=== PATIENT | female | born 1945 | race Caucasian/White ===

== ENCOUNTER 2017-09-12 09:35 | Emergency (ER) | payer MEDICARE ==
[2017-09-12] MEDS ORDERED: Ketorolac Tromethamine 30 MG/ML VIAL ONE (10:41)
[2017-09-12] MEDS ORDERED: Ondansetron ODT 4 MG TAB ONE (10:41)
--- NOTE | 2017-09-12 11:23 | CT ---
CT BRAIN WITHOUT CONTRAST: HISTORY: Headache. FINDINGS: No evidence of infarct, hemorrhage, midline shift, or abnormal extraaxial fluid collections is seen. The ventricular size is normal and the basilar cisterns are patent. The bony calvarium is intact. The visualized paranasal sinuses and mastoid air cells are well aerated. IMPRESSION: No CT evidence of acute intracranial process. POS: [facility]
== END 2017-09-12 11:33 | disposition home or self-care (01) ==
LOC: SCSER 09:35
DX: G43.909 Migraine, unspecified, not intractable, without status migrainosus (principal); M26.609 Unspecified temporomandibular joint disorder, unspecified side; I10 Essential (primary) hypertension; F41.9 Anxiety disorder, unspecified; Z79.899 Other long term (current) drug therapy
CPT/HCPCS: 70450; 96372; J1885; Q0162

== ENCOUNTER 2017-10-29 18:36 | Emergency (ER) | payer MEDICARE ==
[~2017-10-29 18:36] MED LIST: ISOVUE-370 76%-LOCM 1 ML ONE
[2017-10-29 19:44] LABS: Bilirubin Negative (Negative); Blood, Urine Negative (Negative); Clarity CLEAR (Clear); Glucose, Urine (Dipstick) Negative (Negative); Leukocyte Negative (Negative); Nitrite Negative (Negative); Protein, Urine (Dipstick) Negative (Neg-Trace); Specific Gravity, Urine 1.004 (1.002-1.036); Urobilinogen 0.2 mg/dL (0.2-1.0); pH, Urine 6.5 (5.0-9.0)
[2017-10-29 20:06] LABS: #Basophils 0.1 thou/uL (0.0-0.2); #Eosinphils 0.1 thou/uL (0.0-0.7); #Lymphocytes 1.8 thou/uL (1.20-3.40); #Monocytes 0.4 thou/uL (0.11-0.59); #Neutrophils 3.8 thou/uL (1.40-6.50); %Basophils 1.1 % (0.0-1.0); %Eosinophils 1.5 % (0.0-10.0); %Lymphocytes 29.7 % (21.0-51.0); %Monocytes 5.8 % (0.0-10.0); %Neutrophils 61.8 % (42.0-75.0); Hemoglobin 12.7 g/dL (12.0-16.0); Mean Corpuscular HGB CONC 33.2 g/dL (32.0-36.0); Mean Corpuscular Volume 87.2 fL (78.0-98.0); Mean Platelet Volume 8.5 fL (7.4-10.4); Platelet Count 182 thou/uL (130-400); RBC Distribution Width 12.2 % (11.5-14.5); Red Blood Cell (RBC) Count 4.39 mill/uL (4.20-5.40); White Blood Cell (WBC) Count 6.2 thou/uL (4.8-10.8)
[2017-10-29 20:29] LABS: ALT (SGPT) Less than 7 U/L (8-55); AST (SGOT) 18 U/L (5-34); Albumin 4.3 g/dL (3.4-4.8); Alkaline Phosphatase 106 U/L (40-150); Anion Gap 12 mmol/L (10-20); BUN (Urea Nitrogen) 7 mg/dL (9.8-20.1); Bilirubin, Total 0.5 mg/dL (0.2-1.2); Calc. Creatinine Clearance 0 mL/min (70-130); Calcium 9.7 mg/dL (7.8-10.44); Carbon Dioxide 26 mmol/L (23-31); Chloride 106 mmol/L (98-107); Estimated GFR-MDRD 79; Globulin 3.1 g/dL (2.4-3.5); Glucose 99 mg/dL (80-115); Lipase 26 U/L (8-78); Potassium 3.9 mmol/L (3.5-5.1); Protein, Total 7.4 g/dL (6.0-8.3); Sodium 140 mmol/L (136-145)
--- NOTE | 2017-10-29 21:39 | CT ---
CT ABDOMEN WITH CONTRAST CT PELVIS WITH CONTRAST 10/29/17 COMPARISON: 12/13/16. HISTORY: Lower abdominal pain, starting today. Bloating. Patient has irritable bowel syndrome. TECHNIQUE: Abdomen and pelvic CT are performed with IV contrast. Enteric contrast is not administered. Coronal r eformatted images are submitted for interpretation. FINDINGS: ABDOMEN CT: Normal cardiac silhouette. Lung bases are clear. the visualized aorta has a normal caliber. No periao rtic fat stranding. Symmetric attenuation of the psoas muscles. Gallbladder is surgically absent. Portal vein is patent. The liver, spleen, pancreas and adrenal glands have appropriate enhancement. No gastrohepatic, retrocrural or periportal lymphadenopathy. No mesenteric mass, lymphadenopathy, peri e air or free fluid. Limited evaluation of the alimentary canal due to lack of oral contrast. No evidence of bowel obstruc tion. Ileocecal junction is normal. Cecal apex is slightly atypical in location as noted in the upper aspect of the pelvis. Normal caliber appendix is identified. Scattered fecal material in a nondisten ded, nondilated colon. Minimal diverticulosis. No evidence of diverticulitis. Mucosal prominence of t he sigmoid colon is felt to be due to inadequate distention. Symmetric enhancement of the kidneys. Bilateral renal pelvic cysts are again noted. No evidence of ob structive uropathy. PELVIC CT: No mass, lymphadenopathy, free air or free fluid. The uterus is surgically absent. Bladder is unremar kable. No lytic or blastic lesions in the osseous structures. Stable hypodensity in the left labia majora. IMPRESSION: 1. No acute abnormality in the abdomen or pelvis. 2. Bilateral peripelvic cyst. 3. Normal caliber appendix. 4. Mucosal thickening of the sigmoid colon likely due to inadequate distention. POS: [facility]
== END 2017-10-29 20:00 | disposition home or self-care (01) ==
LOC: ERS 18:36
DX: L03.311 Cellulitis of abdominal wall (principal); K58.9 Irritable bowel syndrome, unspecified; F41.9 Anxiety disorder, unspecified; Z79.899 Other long term (current) drug therapy
CPT/HCPCS: 74177; 80053; 81003; 83605; 83690; 85025; 87070; 87086; 87205; 96360

== ENCOUNTER 2018-03-26 10:09 | Emergency (ER) | payer MEDICARE ==
[2018-03-26 10:43] LABS: #Basophils 0.1 thou/uL (0.0-0.2); #Eosinphils 0.1 thou/uL (0.0-0.7); #Monocytes 0.4 thou/uL (0.11-0.59); #Neutrophils 6.4 thou/uL (1.40-6.50); %Basophils 0.8 % (0.0-1.0); %Eosinophils 1.1 % (0.0-10.0); %Lymphocytes 12.6 % (21.0-51.0); %Monocytes 5.1 % (0.0-10.0); %Neutrophils 80.4 % (42.0-75.0); Hemoglobin 12.2 g/dL (12.0-16.0); Mean Corpuscular HGB CONC 33.3 g/dL (32.0-36.0); Mean Platelet Volume 8.3 fL (7.4-10.4); Platelet Count 197 thou/uL (130-400); RBC Distribution Width 12.8 % (11.5-14.5); Red Blood Cell (RBC) Count 4.23 mill/uL (4.20-5.40); White Blood Cell (WBC) Count 7.9 thou/uL (4.8-10.8)
--- NOTE | 2018-03-26 10:45 | RAD ---
CHEST 1 VIEW: HISTORY: Syncope. COMPARISON: Radiograph 09/15/2016. FINDINGS: Lungs are hyperinflated. No confluent airspace consolidation, pneumothorax, or effusion. Cardiac si lhouette and mediastinal contours within normal limits. IMPRESSION: Chronic changes. No acute intrathoracic abnormality. POS: [facility]
[2018-03-26 11:06] LABS: ALT (SGPT) Less than 7 U/L (8-55); AST (SGOT) 18 U/L (5-34); Albumin 4.2 g/dL (3.4-4.8); Alkaline Phosphatase 97 U/L (40-150); Anion Gap 12 mmol/L (10-20); BUN (Urea Nitrogen) 10 mg/dL (9.8-20.1); Bilirubin, Total 0.6 mg/dL (0.2-1.2); Calc. Creatinine Clearance 0 mL/min (70-130); Calcium 9.4 mg/dL (7.8-10.44); Carbon Dioxide 26 mmol/L (23-31); Chloride 106 mmol/L (98-107); Estimated GFR-MDRD 83; Globulin 3.4 g/dL (2.4-3.5); Glucose 91 mg/dL (80-115); Magnesium 2.2 mg/dL (1.6-2.6); Potassium 3.6 mmol/L (3.5-5.1); Protein, Total 7.6 g/dL (6.0-8.3); Sodium 140 mmol/L (136-145)
[2018-03-26 11:09] LABS: Troponin I 0.016 ng/mL (< 0.028)
== END 2018-03-26 12:57 | disposition home or self-care (01) ==
LOC: ERS 10:09
DX: R53.1 Weakness (principal); K58.9 Irritable bowel syndrome, unspecified; F41.9 Anxiety disorder, unspecified; Z79.899 Other long term (current) drug therapy
CPT/HCPCS: 36415; 71045; 80053; 83735; 83880; 84443; 84484; 85025; 93005

== ENCOUNTER 2018-04-05 08:14 | Outpatient (CLI) | payer MEDICARE ==
--- NOTE | 2018-04-05 11:31 | MRI ---
MRI CERVICAL SPINE WITHOUT CONTRAST: HISTORY: Osteoarthritis of the cervical region. Unspecified spinal osteoarthritis. Neck pain. Unstable gait x6 months. COMPARISON: 09/03/2016 FINDINGS: There is stable alignment of the cervical spine. Appropriate T1 marrow signal intensity of the cervi talisha vertebrae. Cervical spine vertebral body height is maintained. There is no fracture. No signif icant STIR hyperintensity to suggest vertebral body edema due to ligamentous injury. The visualized brain parenchyma, cervicomedullary junction, cervical cord, and upper thoracic cord mazariegos ve normal size and signal intensity. C2-C3: No significant central canal stenosis. The neural foramina are patent. C3-C4: No significant central canal stenosis. Mild bilateral foraminal narrowing due to uncovertebr al hypertrophy. C4-C5: Broad-based disk bulge with a central disk protrusion, impressing upon the ventral thecal sac . There is defacement of the ventral subarachnoid space. There is deformity of the ventral cord, wi thout T2 hyperintensity in the cord. When compared to the previous examination, the degree of disk m aterial indenting upon the cord does not appear to have significantly increased. There is mild centr al canal stenosis. The neural foramina are patent bilaterally. C5-C6: Broad-based disk bulge, which abuts the thecal sac and effaces the ventral subarachnoid space . Minimal deformity of the cervical cord. Mild central canal stenosis. The neural foramina are pat ent. C6-C7: No significant central canal stenosis or foraminal narrowing. Bilateral perineural sleeve cy sts are noted. C7-T1: No significant central canal stenosis or neural foraminal narrowing. Bilateral perineural sl eeve cysts are noted. IMPRESSION: Essentially stable degenerative changes of the cervical spine. POS: [facility]
--- NOTE | 2018-04-05 11:55 | MRI ---
MRI THORACIC SPINE NONCONTRAST: INDICATIONS: Osteoarthritis of the thoracic spine. Back pain. COMPARISON: Reference made to a 08/20/2005 exam. FINDINGS: Stable intrinsic T1 hyperintensity scattered within the thoracic spine is present, indicating intraos seous hemangiomas. The largest of these is located at the T9 vertebral body. There is no evidence o f an expansile process of the thoracic spinal cord. No intrinsic cord signal abnormality. There is no significant, extrinsic mass effect upon the thoracic spinal cord. Minimal disk bulges are seen wi th slight effacement of the ventral thecal sac. No high-grade foraminal compromise. No evidence of subluxation. Incidentally imaged upper left kidney reveals T2 hyperintensity centrally, which may re late to peripelvic cyst formation. IMPRESSION: 1. Minimal degenerative change of the thoracic spine. 2. No significant mass effect upon the thoracic spinal cord or evidence of intrinsic cord signal abn ormality. 3. 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 4. No acute compression fracture or subluxation. POS: [facility]
--- NOTE | 2018-04-05 13:01 | MRI ---
MRI LUMBAR SPINE WITHOUT CONTRAST: HISTORY: Lumbar spondylosis. Unstable gait. Low back pain. Bilateral feet numbness x6 months. COMPARISON: 08/20/2005 TECHNIQUE: An MRI of the lumbar spine is performed without intravenous Gadolinium administration. Multisequenti al, multiplanar imaging is performed. FINDINGS: Appropriate T1 marrow signal intensity of the lumbar vertebrae. Vertebral body height is maintained. There is no fracture. No significant STIR hyperintensity to suggest vertebral body edema or ligame ntous injury. Symmetric signal intensity of psoas muscles. Appropriate signal intensity of the visualized solid or shena. Bilateral parapelvic cysts are again noted. The conus medullaris terminates at the upper aspect of L1. T12-L1: Adequate disk hydration. No significant central canal stenosis or foraminal narrowing. L1-L2: Adequate disk hydration. No significant central canal stenosis. The foramina are patent. L2-L3: Adequate disk hydration. No significant central canal stenosis. The neural foramina are pat ent. L3-L4: Adequate disk hydration. No significant central canal stenosis. The neural foramina are pat ent. L4-L5: Desiccation with mild loss of disk space height. Generalized disk bulge results in mild cent ral canal stenosis. The neural foramina are patent bilaterally. L5-S1: There is desiccation without significant loss of disk space height. No significant posterior disk abnormality. There is no significant central canal stenosis. The right subarticular zone is u nremarkable. Disk material does encroach upon the left subarticular zone and abuts the traversing le ft S1 nerve root. No significant obscuration of the traversing left S1 nerve root. The neural mert carolann are patent bilaterally. IMPRESSION: Degenerative changes at L5-S1, as described above. The degree of mass effect upon the traversing lef t S1 nerve root has not progressed when compared to the previous examination. POS: [facility]
== END 2018-04-05 08:15 | disposition home or self-care (01) ==
LOC: BICMRI 08:14
PROVIDERS: ATTEND Orthopaedic Surgery
DX: M47.812 Spondylosis without myelopathy or radiculopathy, cervical region (principal); M47.814 Spondylosis without myelopathy or radiculopathy, thoracic region; M47.816 Spondylosis without myelopathy or radiculopathy, lumbar region; M47.817 Spondylosis without myelopathy or radiculopathy, lumbosacral region; D18.09 Hemangioma of other sites
CPT/HCPCS: 72141; 72146; 72148

== ENCOUNTER 2018-10-11 15:20 | Outpatient (CLI) | payer MEDICARE ==
--- NOTE | 2018-10-11 16:24 | MRI ---
MRI OF LEFT KNEE10/11/18 PROVIDED CLINICAL HISTORY: Left knee pain. FINDINGS: Comparison is made with the examination dated 09/17/2015. The anterior cruciate ligament, posterior cruciate ligament, medial collateral ligament and lateral c ollateral ligamentous complex demonstrates an intact MR appearance, as does the extensor mechanism. The medial and lateral menisci demonstrate no evidence for tear. No focal articular cartilage defect is apparent. There is articular cartilage thinning involving the central weightbearing portions of the medial femorotibial joint. There is marrow edema within the s ubchondral regions of the central weightbearing portions of the lateral femoral condyle with an assoc iated subtle area of cortical concavity and subcortical linear T1 and T2 hypointensity, compatible wi th subchondral insufficiency fracture. There is a small knee joint effusion. No additional concerning regional marrow signal abnormality is evident. Regional muscular signal appears unremarkable. IMPRESSION: Lateral femoral condyle subchondral insufficiency fracture. POS: [facility]
== END 2018-10-11 15:21 | disposition home or self-care (01) ==
LOC: BICMRI 15:20
PROVIDERS: ATTEND Orthopaedic Surgery
DX: M23.92 Unspecified internal derangement of left knee (principal); S72.421A Displaced fracture of lateral condyle of right femur, initial encounter for closed fracture

== ENCOUNTER 2018-10-24 11:10 | Outpatient (CLI) | payer MEDICARE ==
--- NOTE | 2018-10-30 18:15 | MMO ---
Bilateral MAMMO Bilat Screen DDI+ANGELIQUE. CLINICAL HISTORY: Patient is 73 years old and is seen for screening. The patient has no family history of breast cancer. The patient has no personal history of cancer. The patient has a history of right Stereotatic Biopsy - benign. VIEWS: The views performed were: bilateral craniocaudal with tomosynthesis and bilateral mediolateral oblique with tomosynthesis. FILMS COMPARED: The present examination has been compared to prior imaging studies performed at [facility] on 10/15/2016, and at [facility] on 08/02/2012, 05/16/2015 and 05/26/2016. MAMMOGRAM FINDINGS: There are scattered fibroglandular densities. Finding 1: There is a new focal asymmetry seen in the MLO view only seen in the middle central region of the left breast located 6 centimeters from the nipple. Finding 2: There is a focal asymmetry seen in the CC view only seen in the anterior inner region of the left breast located 2 centimeters from the nipple. In the right breast, there are no suspicious masses, calcifications or areas of architectural distortion. IMPRESSION: FINDING 1: NEW FOCAL ASYMMETRY IN THE MIDDLE CENTRAL REGION OF THE LEFT BREAST LOCATED 6 CENTIMETERS FROM THE NIPPLE REQUIRES ADDITIONAL EVALUATION. ADDITIONAL PROJECTIONS ARE RECOMMENDED. SPOT COMPRESSION IS RECOMMENDED. SPOT MAGNIFICATION VIEW(S) ARE RECOMMENDED. FINDING 2: FOCAL ASYMMETRY IN THE ANTERIOR INNER REGION OF THE LEFT BREAST LOCATED 2 CENTIMETERS FROM THE NIPPLE REQUIRES ADDITIONAL EVALUATION. AN ULTRASOUND EXAM IS RECOMMENDED IF NEEDED. ADDITIONAL IMAGING. THE RESULTS OF THIS EXAM WERE SENT TO THE PATIENT. ACR BI-RADS Category 0 - Incomplete: Need additional imaging evaluation. [facility] will notify the patient of the need for additional imaging services. MAMMOGRAPHY NOTE: 1. A negative mammogram report should not delay a biopsy if a dominant of clinically suspicious mass is present. 2. Approximately 10% to 15% of breast cancers are not detected by mammography. 3. Adenosis and dense breasts may obscure an underlying neoplasm.
== END 2018-10-24 11:11 | disposition home or self-care (01) ==
LOC: BICMAMMO 11:10
PROVIDERS: ATTEND Family Medicine
DX: Z12.31 Encounter for screening mammogram for malignant neoplasm of breast (principal); N64.89 Other specified disorders of breast
CPT/HCPCS: 77063; 77067

== ENCOUNTER 2018-11-01 13:03 | Outpatient (CLI) | payer MEDICARE ==
--- NOTE | 2018-11-01 13:47 | MMO ---
Left Breast MAMMO Unilat Diag DDI LT+ANGELIQUE. CLINICAL HISTORY: Patient is 73 years old and is seen for diagnostic exam. The patient has no family history of breast cancer. The patient has no personal history of cancer. The patient has a history of right Stereotatic Biopsy - benign. VIEWS: The views performed were: left craniocaudal spot compression with tomosynthesis; left mediolateral oblique spot compression with tomosynthesis; and left mediolateral with tomosynthesis. FILMS COMPARED: The present examination has been compared to prior imaging studies performed at [facility] on 10/15/2016 and 10/24/2018, and at [facility] on 05/16/2015 and 05/26/2016. MAMMOGRAM FINDINGS: There are scattered fibroglandular densities. There are several stable focal asymmetries seen in the left breast. There are no suspicious masses, suspicious calcifications, or new areas of architectural distortion. IMPRESSION: THERE IS NO MAMMOGRAPHIC EVIDENCE OF MALIGNANCY. A ROUTINE FOLLOW-UP MAMMOGRAM IN 1 YEAR IS RECOMMENDED. THE RESULTS OF THIS EXAM WERE SENT TO THE PATIENT. ACR BI-RADS Category 2 - Benign finding MAMMOGRAPHY NOTE: 1. A negative mammogram report should not delay a biopsy if a dominant of clinically suspicious mass is present. 2. Approximately 10% to 15% of breast cancers are not detected by mammography. 3. Adenosis and dense breasts may obscure an underlying neoplasm.
== END 2018-11-01 13:04 | disposition home or self-care (01) ==
LOC: BICMAMMO 13:03
PROVIDERS: ATTEND Family Medicine
DX: R92.2 Inconclusive mammogram (principal); Z91.89 Other specified personal risk factors, not elsewhere classified
CPT/HCPCS: 77065; G0279

== ENCOUNTER 2018-12-28 19:24 | Emergency (ER) | payer MEDICARE ==
--- NOTE | 2018-12-28 20:34 | RAD ---
RADIOGRAPH CHEST 2 VIEWS: DATE: 12/28/2018 HISTORY: 73-year-old female with chest pain after painful cough FINDINGS: There is no airspace density, pulmonary edema, pleural effusion, pneumothorax, or cardiomegaly. IMPRESSION: No acute cardiopulmonary findings.
[2018-12-28 21:01] LABS: #Basophils 0.1 thou/uL (0.0-0.2); #Eosinphils 0.2 thou/uL (0.0-0.7); #Lymphocytes 1.7 thou/uL (1.20-3.40); #Monocytes 0.6 thou/uL (0.11-0.59); #Neutrophils 5.2 thou/uL (1.40-6.50); %Eosinophils 3.1 % (0.0-10.0); %Lymphocytes 21.6 % (21.0-51.0); %Monocytes 7.2 % (0.0-10.0); %Neutrophils 67.1 % (42.0-75.0); Hemoglobin 10.1 g/dL (12.0-16.0); Mean Corpuscular HGB CONC 32.8 g/dL (32.0-36.0); Mean Corpuscular Hemoglobin 26.7 pg (27.0-31.0); Mean Corpuscular Volume 81.4 fL (78.0-98.0); Mean Platelet Volume 8.6 fL (7.4-10.4); Platelet Count 228 thou/uL (130-400); RBC Distribution Width 14.5 % (11.5-14.5); Red Blood Cell (RBC) Count 3.79 mill/uL (4.20-5.40); White Blood Cell (WBC) Count 7.8 thou/uL (4.8-10.8)
[2018-12-28 21:23] LABS: ALT (SGPT) Less than 7 U/L (8-55); AST (SGOT) 17 U/L (5-34); Alkaline Phosphatase 112 U/L (40-150); Anion Gap 11 mmol/L (10-20); BUN (Urea Nitrogen) 12 mg/dL (9.8-20.1); Bilirubin, Total 0.2 mg/dL (0.2-1.2); Calc. Creatinine Clearance 0 mL/min (70-130); Calcium 8.9 mg/dL (7.8-10.44); Carbon Dioxide 25 mmol/L (23-31); Chloride 107 mmol/L (98-107); Estimated GFR-MDRD 71; Glucose 120 mg/dL (83-110); Lipase 32 U/L (8-78); Potassium 3.7 mmol/L (3.5-5.1); Sodium 139 mmol/L (136-145)
[2018-12-28] MEDS ORDERED: Lidocaine Viscous Sol 2% 15 ml UD Cup ONE (22:21)
[2018-12-28] MEDS ORDERED: Pantoprazole 40 MG VIAL ONE (22:21)
[2018-12-28] MEDS ORDERED: Mag-Al 1200 mg/1200 mg/30 ML UDCUP ONE (22:21)
[2018-12-28 23:43] LABS: Troponin I Less than 0.010 ng/mL (< 0.028)
== END 2018-12-29 00:15 | disposition home or self-care (01) ==
LOC: ERS 19:24
DX: R07.89 Other chest pain (principal); F41.9 Anxiety disorder, unspecified; Z79.899 Other long term (current) drug therapy
CPT/HCPCS: 36415; 71046; 80053; 83690; 84484; 85025; 93005; 96361; 96374; C9113

== ENCOUNTER 2019-03-12 13:17 | Outpatient (CLI) | payer MEDICARE ==
--- NOTE | 2019-03-12 13:52 | RAD ---
Exam:3 views left foot HISTORY: Pain. COMPARISON: None FINDINGS: Lisfranc alignment is maintained. Joint spaces are preserved. No fracture. No cortical irre gularity or periosteal reaction. Mild soft tissue swelling along the first digit and the dorsum of the foot. IMPRESSION: No fracture. Mild soft tissue swelling, as above.
== END 2019-03-12 13:18 | disposition home or self-care (01) ==
LOC: BICRAD 13:17
PROVIDERS: ATTEND Podiatrist
DX: M79.675 Pain in left toe(s) (principal); R20.2 Paresthesia of skin; M79.89 Other specified soft tissue disorders

== ENCOUNTER 2019-08-13 10:12 | Outpatient (CLI) | payer MEDICARE ==
--- NOTE | 2019-08-13 12:19 | MMO ---
Bilateral MAMMO Bilat Diag DDI+ANGELIQUE. CLINICAL HISTORY: Patient is 74 years old and is seen for diagnostic exam and pain in the left breast. The patient has no family history of breast cancer. The patient has no personal history of cancer. The patient has a history of right Stereotatic Biopsy - benign. VIEWS: The views performed were: left craniocaudal with tomosynthesis; left mediolateral oblique with tomosynthesis; and left mediolateral with tomosynthesis. FILMS COMPARED: The present examination has been compared to prior imaging studies performed at [facility] on 10/15/2016, 10/24/2018, 11/01/2018 and 08/13/2019. This study has been interpreted with the assistance of computer-aided detection. MAMMOGRAM FINDINGS: There are scattered fibroglandular densities. Finding 1: There are vascular calcifications seen in both breasts. Finding 2: There is a biopsy clip seen in the right breast. There are no suspicious masses, suspicious calcifications, or new areas of architectural distortion. IMPRESSION: THERE IS NO MAMMOGRAPHIC EVIDENCE OF MALIGNANCY. A ROUTINE FOLLOW-UP MAMMOGRAM IN 1 YEAR IS RECOMMENDED. THE RESULTS OF THIS EXAM WERE SENT TO THE PATIENT. ACR BI-RADS Category 2 - Benign finding MAMMOGRAPHY NOTE: 1. A negative mammogram report should not delay a biopsy if a dominant of clinically suspicious mass is present. 2. Approximately 10% to 15% of breast cancers are not detected by mammography. 3. Adenosis and dense breasts may obscure an underlying neoplasm. Reported by: HUI SUTTON MD Electonically Signed: [id number]
--- NOTE | 2019-08-13 14:06 | ULT ---
LEFT BREAST ULTRASOUND: Date: 08/13/2019 HISTORY: Left breast pain anteriorly. FINDINGS: Real-time imaging of the left breast in the area of concern failed to show any cystic or solid mass. IMPRESSION: Unremarkable left breast ultrasound. Routine mammographic follow-up is recommended. POS: [facility]
== END 2019-08-13 10:13 | disposition home or self-care (01) ==
LOC: BICMAMMO 10:12
PROVIDERS: ATTEND Family Medicine
DX: N64.4 Mastodynia (principal)
CPT/HCPCS: 76642; 77066; G0279

== ENCOUNTER 2019-10-22 10:50 | Outpatient (CLI) | payer MEDICARE ==
--- NOTE | 2019-10-22 11:24 | RAD ---
EXAM: Chest 2 views: HISTORY: Chronic cough COMPARISON: 12/28/2018 FINDINGS: There is a normal-sized cardiomediastinal silhouette. There is no evidence of consolidation, mass, or pleural effusion. The bones are unremarkable. IMPRESSION: No evidence of acute cardiopulmonary disease
== END 2019-10-22 10:51 | disposition home or self-care (01) ==
LOC: BICRAD 10:50
PROVIDERS: ATTEND Family Medicine
DX: R05 Cough (principal)
CPT/HCPCS: 71046

== ENCOUNTER 2020-12-18 10:27 | Outpatient (CLI) | payer MEDICARE, BC | END 2020-12-18 10:28 | disposition home or self-care (01) | LOC: SCSMRI 10:27 | PROVIDERS: ATTEND Orthopaedic Surgery | DX: M17.11 Unilateral primary osteoarthritis, right knee (principal); S83.241A Other tear of medial meniscus, current injury, right knee, initial encounter; M22.2X1 Patellofemoral disorders, right knee; M25.461 Effusion, right knee ==

== ENCOUNTER 2023-06-28 13:07 | Outpatient (CLI) | payer MEDICARE, BC | END 2023-06-28 13:08 | disposition home or self-care (01) | LOC: BICMRI 13:07 | PROVIDERS: ATTEND Orthopaedic Surgery | DX: M50.30 Other cervical disc degeneration, unspecified cervical region (principal); M47.812 Spondylosis without myelopathy or radiculopathy, cervical region; M47.813 Spondylosis without myelopathy or radiculopathy, cervicothoracic region; G95.89 Other specified diseases of spinal cord | CPT/HCPCS: 72141 ==